=== PATIENT | female | born 2000 | race Caucasian/White ===

== ENCOUNTER 2023-03-13 15:23 | Observation (INO) | payer BC ==
[2023-03-13 16:06] LABS: APPEARANCE,URINE SLT CLOUDY; BILIRUBIN,URINE NEGATIVE (NEGATIVE); COLOR,URINE YELLOW; GLUCOSE,URINE NEGATIVE (NEGATIVE); KETONES,URINE NEGATIVE (NEGATIVE); LEUKOCYTE ESTERASE,URINE SMALL (NEGATIVE); NITRITE,URINE NEGATIVE (NEGATIVE); OCCULT BLOOD,URINE SMALL (NEGATIVE); PH,URINE 6.5 (5.0-8.0); PROTEIN,URINE NEGATIVE (NEGATIVE); UROBILINOGEN,URINE 0.2 EU/dL (<2.0)
[2023-03-13] MEDS ORDERED: Lactated Ringers 1,000 ML IV ONE (16:22)
[2023-03-13] MEDS ORDERED: cefTRIAXone 1 GM in Sodium Chloride 0.9% 50 ML IV ONE (16:24)
[2023-03-13 16:56] LABS: HEMATOCRIT 33.1 % (36.0-46.0); HEMOGLOBIN 11.2 g/dL (12.0-16.0); MEAN CORPUSCULAR HEMOGLOBIN 29.4 pg (27.0-32.0); MEAN CORPUSCULAR HGB CONC 33.8 g/dL (31.0-37.0); MEAN CORPUSCULAR VOLUME 86.9 fL (80.0-98.0); PLATELET COUNT,PLT 195 K/uL (150-400); RED BLOOD CELL COUNT 3.81 M/uL (4.30-5.90); WHITE BLOOD CELL COUNT,WBC 10.83 K/uL (4.0-11.0)
[2023-03-13 17:11] LABS: BAND ABSOLUTE MAN 0.9; BAND PERCENT MAN 8 %; EOSINOPHILS ABSOLUTE MAN 0.1 (0.0-0.7); EOSINOPHILS PERCENT MAN 1 % (0.0-7.0); LYMPHOCYTES ABSOLUTE MAN 1.8 (0.6-2.4); LYMPHOCYTES PERCENT MAN 17 % (16.0-40.0); METAMYELOCYTE ABSOLUTE MAN 0.1; METAMYELOCYTE PERCENT MAN 1 %; MONOCYTES ABSOLUTE MAN 0.2 (0.0-0.8); MONOCYTES PERCENT MAN 2 % (0.0-15.0); SEG NEUTROPHILS ABSOLUTE MAN 7.6 (1.4-5.7); SEG NEUTROPHILS PERCENT MAN 70 % (48.0-80.0)
[2023-03-13 17:12] LABS: MYELOCYTE ABSOLUTE MAN 0.1; MYELOCYTE PERCENT MAN 1 %
[2023-03-13] MEDS ORDERED: Nalbuphine 10 MG/0.5 ML Syringe IVPUSH ONE (18:24)
[2023-03-13] MEDS ORDERED: Nalbuphine 10 MG/0.5 ML Syringe ONE (18:30)
[2023-03-13] MEDS: Lactated Ringers 1,000 ML IV SCH (19:00)
[2023-03-13] MEDS ORDERED: Promethazine 25 MG/ML SDV IM PRN (22:10)
[2023-03-13] MEDS ORDERED: Sodium Chloride 0.9% 2.5 ML Syringe FLUSH PRN (22:16)
[2023-03-13] MEDS ORDERED: Sodium Chloride 0.9% 20 ML SDV IV PRN (22:16)
[2023-03-13] MEDS ORDERED: Sodium Chloride 0.9% 10 ML Syringe FLUSH PRN (22:16)
[2023-03-13] MEDS: Morphine 2 MG/ML SYRINGE IVPUSH PRN (22:27)
[2023-03-13] MEDS ORDERED: Lactated Ringers 1,000 ML IV SCH (22:30)
[2023-03-14] MEDS: Lactated Ringers 1,000 ML IV SCH ×2 (01:12→08:19)
[2023-03-14] MEDS: Morphine 2 MG/ML SYRINGE IVPUSH PRN (05:34)
[2023-03-14] MEDS ORDERED: Acetaminophen/oxyCODONE 325-5 MG Tab PO ONE (11:33)
[2023-03-14] MEDS ORDERED: Acetaminophen/oxyCODONE 325-5 MG Tab ONE (11:38)
== END 2023-03-14 12:30 | disposition home or self-care (01) ==
LOC: MW.OBCHECK 15:23 → MW.OB 15:24 → MW.OBCHECK 22:26
PROVIDERS: ADMIT Obstetrics & Gynecology; ATTEND Obstetrics & Gynecology
DX: O99.891 Other specified diseases and conditions complicating pregnancy (principal); M54.50 Low back pain, unspecified; R11.0 Nausea; Z3A.36 36 weeks gestation of pregnancy
CPT/HCPCS: 36415; 59025; 81003; 85025; 87086; A9270; J0696; J2270; J2300; J3490; J7120

== ENCOUNTER 2023-04-10 04:23 | Inpatient (IN) | payer BC ==
[2023-04-10] MEDS ORDERED: Tranexamic Acid IN NACL,ISO-OS 1,000 MG in Premix Bag 1 BAG IV PRN ×2 (06:11)
[2023-04-10] MEDS ORDERED: Carboprost Tromethamine 250 MCG/1 mL Vial IM PRN (06:11)
[2023-04-10] MEDS ORDERED: Misoprostol 200 MCG Tab PO PRN (06:11)
[2023-04-10] MEDS ORDERED: Ondansetron 4 MG/2 ML SDV IVPUSH PRN ×2 (06:11→13:16)
[2023-04-10] MEDS ORDERED: Sodium Chloride 0.9% 2.5 ML Syringe FLUSH PRN (06:11)
[2023-04-10] MEDS ORDERED: Sodium Chloride 0.9% 10 ML Syringe FLUSH PRN (06:11)
[2023-04-10] MEDS ORDERED: Sodium Chloride 0.9% 20 ML SDV IV PRN (06:11)
[2023-04-10] MEDS ORDERED: Water For Irrigation,Sterile 1,000 ML Container IRR PRN (06:11)
[2023-04-10] MEDS ORDERED: Terbutaline 1 MG/ML SDV SUBCUT PRN (06:11)
[2023-04-10] MEDS ORDERED: Lidocaine 1% 50 ML MDV INJECT PRN (06:11)
[2023-04-10] MEDS ORDERED: Methylergonovine 0.2 MG/1 ML Amp IM PRN (06:11)
[2023-04-10] MEDS ORDERED: Oxytocin/0.9 % Sodium Chloride 30 UNIT/500 ML BAG IV SCH ×2 (06:15)
[2023-04-10 08:37] LABS: HEMATOCRIT 32.2 % (37.0-47.0); HEMOGLOBIN 10.9 g/dL (12.0-16.0); MEAN CORPUSCULAR HEMOGLOBIN 28.2 pg (28.0-32.0); MEAN CORPUSCULAR HGB CONC 33.9 g/dL (32.0-36.0); MEAN CORPUSCULAR VOLUME 83.2 fL (83.0-99.0); MEAN PLATELET VOLUME 11.1 fL (9.4-12.3); PLATELET COUNT,PLT 182 K/uL (150-400); RED BLOOD CELL COUNT 3.87 M/uL (4.10-5.30); WHITE BLOOD CELL COUNT,WBC 9.21 K/uL (3.9-11.3)
[2023-04-10] MEDS: Lactated Ringers 1,000 ML IV SCH ×3 (10:07→16:33)
[2023-04-10] MEDS ORDERED: Ropivacaine/PF 400 MG/200 ML PCA ONE (10:14)
[2023-04-10] MEDS ORDERED: Dexmedetomidine 200 MCG/2 ML SDV ONE (10:14)
[2023-04-10] MEDS ORDERED: Phenylephrine HCl 0.5 MG/5 ML AMP ONE (10:14)
[2023-04-10] MEDS ORDERED: ePHEDrine 50 MG/ML SDV IVPUSH PRN ×2 (10:22)
[2023-04-10] MEDS ORDERED: Phenylephrine HCl 0.5 MG/5 ML AMP IVPUSH PRN (10:22)
[2023-04-10] MEDS ORDERED: Ropivacaine HCl/PF 400 MG in Premix Bag 1 BAG EPIDUR SCH (10:30)
[2023-04-10] MEDS ORDERED: Ibuprofen 800 MG Tab PO PRN (19:54)
[2023-04-10] MEDS ORDERED: Lanolin 100% Cream 7 GM Tube TOP PRN (19:54)
[2023-04-10] MEDS ORDERED: Acetaminophen 500 MG Tab PO PRN (19:54)
[2023-04-10] MEDS ORDERED: Witch Hazel Medicated Pads 40/Jar TOP PRN (19:54)
[2023-04-10] MEDS ORDERED: Bisacodyl 10 MG Supp RECTAL PRN (19:54)
[2023-04-10] MEDS ORDERED: Docusate Sodium 100 MG Cap PO PRN (19:54)
[2023-04-10] MEDS ORDERED: oxyCODONE 5 MG Tab PO PRN (19:54)
[2023-04-10] MEDS ORDERED: Benzocaine/Menthol 20%-0.5% Spray 78 GM Cannister TOP PRN (19:54)
[2023-04-10] MEDS ORDERED: Ibuprofen 400 MG Tab PO PRN (19:54)
[2023-04-11] MEDS: Acetaminophen 500 MG Tab PO PRN ×2 (01:09→10:31)
[2023-04-11 06:13] LABS: HEMATOCRIT 29.8 % (37.0-47.0); HEMOGLOBIN 9.9 g/dL (12.0-16.0)
[2023-04-11] MEDS ORDERED: Sodium Ferric Gluconate Cmplex 125 MG in Sodium Chloride 0.9% 100 ML IV ONE (10:15)
[2023-04-11] MEDS ORDERED: NIFEdipine 30 MG Tab.ER PO SCH (10:15)
== END 2023-04-11 22:10 | disposition home or self-care (01) | DRG 560 ==
LOC: MW.OBCHECK 04:23 → MW.OB 04:24 → MW.OBCHECK 05:14 → MW.OB 05:15 → OBSVTOIN 19:11 → MW.OB 23:27
PROVIDERS: ADMIT Obstetrics & Gynecology; ATTEND Obstetrics & Gynecology
PROC: 10E0XZZ Delivery of Products of Conception, External Approach (ICD-10-PCS; principal; 2023-04-10)
PROC: 0KQM0ZZ Repair Perineum Muscle, Open Approach (ICD-10-PCS; 2023-04-10)
DX: O42.02 Full-term premature rupture of membranes, onset of labor within 24 hours of rupture (principal); Z37.0 Single live birth; O77.0 Labor and delivery complicated by meconium in amniotic fluid; O70.1 Second degree perineal laceration during delivery; Z3A.40 40 weeks gestation of pregnancy; O69.81X0 Labor and delivery complicated by cord around neck, without compression, not applicable or unspecified; O64.0XX0 Obstructed labor due to incomplete rotation of fetal head, not applicable or unspecified; O99.03 Anemia complicating the puerperium; O13.5 Gestational [pregnancy-induced] hypertension without significant proteinuria, complicating the puerperium
CPT/HCPCS: 36415; 51702; 59025; 59409; 84112; 85014; 85018; 85027; 86592; 86850; 86900; 86901; A9270-GY; J2371; J2405; J2590; J2795; J2916; J3490; J7120